=== PATIENT | female | born 1985 | race Caucasian/White ===

== ENCOUNTER 2020-12-28 16:22 | Emergency (ER) | payer BC, SELFPAY ==
[2020-12-28 16:34] VITALS: BP 120/83; PULSE 74; TEMP 97.9; BMI 29.5
[2020-12-28] MEDS ORDERED: FLUORESCEIN NA 1 EA STRIP ONE ×2 (17:56→18:03)
[2020-12-28] MEDS ORDERED: FLUORESCEIN NA 1 EA STRIP OS ONE (17:59)
[2020-12-28] MEDS ORDERED: ERYTHROMYCIN 0.5% OPHTHALMIC OINTMENT 3.5 GM TUBE OS ONE (17:59)
[2020-12-28] MEDS ORDERED: TETRACAINE 0.5% OPHTH SOLN 2 ML BOTTLE OS ONE (17:59)
[2020-12-28] MEDS ORDERED: TETRACAINE 0.5% OPHTH SOLN 2 ML BOTTLE ONE (18:03)
[2020-12-28] MEDS ORDERED: ERYTHROMYCIN 0.5% OPHTHALMIC OINTMENT 3.5 GM TUBE ONE (18:03)
== END 2020-12-28 18:07 | disposition home or self-care (01) ==
LOC: JERFT 16:22
DX: S05.02XA Injury of conjunctiva and corneal abrasion without foreign body, left eye, initial encounter (principal)
CPT/HCPCS: 99283-25

== ENCOUNTER 2021-09-29 15:59 | Emergency (ER) | payer BC ==
[2021-09-29 16:38] VITALS: BP 136/82; PULSE 81; TEMP 98.1; BMI 25.4
[2021-09-29 18:06] LABS: BASO % 0.8 % (0-2.0); HEMATOCRIT 41.4 % (32.4-45.2); HEMOGLOBIN 13.9 GM/dL (10.7-15.3); MCH 31.1 pg (25.7-33.7); MCHC 33.5 g/dl (32.0-36.0); MEAN CELL VOLUME 92.7 fl (80-96); MEAN PLT VOLUME 9.6 fl (7.5-11.1); MONO % 5.7 % (3.8-10.2); NEUT % 60.5 % (42.8-82.8); PLATELET COUNT 202 10^3/uL (134-434); RBC 4.47 M/mm3 (3.60-5.2); RDW 14.2 % (11.6-15.6); WHITE BLOOD COUNT 8.2 K/mm3 (4.0-10.0)
[2021-09-29 18:14] LABS: INR 0.95 (0.83-1.09); PROTHROMBIN TIME (PATIENT) 10.9 SEC (9.7-13.0)
[2021-09-29 18:16] LABS: ACTIVATED PTT 31.7 SECONDS (25.2-36.5)
== END 2021-09-29 18:54 | disposition home or self-care (01) ==
LOC: JER 15:59
DX: M79.81 Nontraumatic hematoma of soft tissue (principal)
CPT/HCPCS: 36415; 82306; 85025; 85610; 85730; 93005; 93010; 99284-25